=== PATIENT | male | born 1970 | race African-American/Black ===

== ENCOUNTER 2021-02-20 03:17 | Emergency (ER) | payer SELFPAY ==
[~2021-02-20] VITALS: Ht 177.8 cm; Wt 100.0 kg
[2021-02-20] MEDS ORDERED: TETANUS, DIPHTHERIA, PERTUSSIS VAC/PF 0.5ML (>7YR OLD) IM ONE (05:00)
[2021-02-20] MEDS ORDERED: BACITRACIN 15GM TUBE TOP ONE (05:00)
[2021-02-20] MEDS ORDERED: MORPHINE SULFATE 10 MG/ML CPJ IM ONE (05:00)
[2021-02-20] MEDS ORDERED: IBUP-2029 MT (05:11)
[2021-02-20 06:15] VITALS: BP 133/78
== END 2021-02-20 06:55 | disposition home or self-care (01) ==
LOC: EDBD 03:17 → ER 03:38
DX: D64.9 Anemia, unspecified (principal); Z98.890 Other specified postprocedural states
CPT/HCPCS: 90471; 90715; 96372; 99284; J2270

== ENCOUNTER 2025-09-27 04:22 | Emergency (ER) | payer MEDICAID ==
[~2025-09-27] VITALS: Ht 172.7 cm; Wt 104.0 kg
[~2025-09-27 04:22] MED LIST: IBUP-1455 MT
[2025-09-27 04:23] VITALS: O2SAT 99
[2025-09-27] MEDS: SODIUM CHLORIDE 0.9% 1,000 ML IV ONE (04:55)
[2025-09-27] MEDS: ONDANSETRON HCL 4MG/2ML INJ IV ONE (04:55)
[2025-09-27] MEDS: MORPHINE SULFATE 4 MG/ML INJ (FOR IV/IM USE) IV ONE (05:15)
[2025-09-27 05:51] LABS: BASOPHILS % 0.3 % (0.0-2.0); EOSINOPHILS % 0.4 % (0.0-5.0); HEMATOCRIT. 41.9 % (42.0-52.0); HEMOGLOBIN. 13.5 g/dL (14.0-18.0); LYMPHOCYTES % 26.4 % (20.0-50.0); MEAN PLATELET VOLUME 8.8 fl (7.4-10.4); MONOCYTES % 9.5 % (2.0-8.0); NEUTROPHILS % 63.4 % (40.0-76.0); PLATELET 170 x1000/uL (130-400); RED BLOOD CELL COUNT 4.82 mill/uL (4.7-6.1); RED CELL DISTRIBUTION WIDTH 15.1 % (11.6-14.6)
[2025-09-27 06:11] LABS: CREATININE 1.0 mg/dL (0.6-1.3); UREA NITROGEN BLOOD 11 mg/dL (9-23)
[2025-09-27 06:12] LABS: PROTEIN TOTAL 7.3 g/dL (6.0-8.3)
[2025-09-27 06:13] LABS: ASPARTATE AMINOTRANSFERASE 43 IU/L (<34)
[2025-09-27 06:14] LABS: BILIRUBIN DIRECT 0.2 mg/dL (<=3.0); BILIRUBIN TOTAL 0.7 mg/dL (0.1-1.0)
[2025-09-27 06:51] VITALS: BP 144/69; PULSE 67; RESP 20; TEMP 36.9; O2SAT 99
== END 2025-09-27 07:14 | disposition left against medical advice (07) ==
LOC: ER 04:22 → EDBEDREQTM 07:03 → EDBEDREQ 07:03 → ER 07:14 → CMPBEDREQ 12:37
DX: R10.A1 Flank pain, right side (principal); E11.9 Type 2 diabetes mellitus without complications; I10 Essential (primary) hypertension; Z88.6 Allergy status to analgesic agent; Z90.3 Acquired absence of stomach [part of]; Z90.49 Acquired absence of other specified parts of digestive tract; Z90.5 Acquired absence of kidney
CPT/HCPCS: 80076; 80048; 83690; 85025; 36415; 71045; 74176; 93976; 76705; 76870; 96361; 96374; 96375; 99285; J2405; J2270; J7030; Z7610